=== PATIENT | female | born 1940 ===

== ENCOUNTER 2022-06-14 19:11 | Emergency (ER) | payer BC ==
[~2022-06-14] VITALS: Ht 154.9 cm; Wt 47.0 kg
[2022-06-14] MEDS ORDERED: ACETAMINOPHEN 325MG TABLET PO ONE (21:00)
[2022-06-14] MEDS ORDERED: TETANUS, DIPHTHERIA, PERTUSSIS VAC/PF 0.5ML (>10YR OLD) IM ONE (21:00)
[2022-06-14] MEDS ORDERED: ACET-2708 MT (22:27)
[2022-06-14 22:45] VITALS: BP 126/68
== END 2022-06-14 22:44 | disposition home or self-care (01) ==
LOC: ER 19:11
DX: S93.492A Sprain of other ligament of left ankle, initial encounter (principal); S09.8XXA Other specified injuries of head, initial encounter; W18.39XA Other fall on same level, initial encounter; Y93.89 Activity, other specified; Y92.89 Other specified places as the place of occurrence of the external cause; Y99.8 Other external cause status
CPT/HCPCS: 73610; 90471; 90715; 99284